=== PATIENT | female | born 1935 | race Caucasian/White ===

== ENCOUNTER 2018-01-11 08:20 | Outpatient (CLI) | payer MEDICARE ==
[2018-01-11] MEDS ORDERED: Iopamidol 370 76% 100 ML VIAL ONE (09:00)
--- NOTE | 2018-01-11 09:30 | CT ---
CT ABDOMEN AND PELVIS WITH AND WITHOUT IV COTNRAST: HISTORY: Renal mass. FINDINGS: No comparison. Each renal collecting system, ureter, and the urinary bladder are decompressed withou t stone evident. No filling defects are apparent within the urinary system on the delayed images. Projecting laterally from the posterior aspect of the left kidney is a well-circumscribed fluid densi ty mass that is partially exophytic. It measures 1.1 cm diameter. No other solid or cystic renal ma sses are apparent. The liver, spleen, adrenal glands, and pancreas are within normal limits. There is calcification in the arterial structures. No enlarged lymph nodes or free fluid are apparent. Degenerative changes l umbar spine and hips. Diverticula arise from the colon without adjacent inflammation. IMPRESSION: 1. Small exophytic left renal cyst. No solid masses are apparent. 2. Diverticulosis. 3. Atherosclerosis. POS: MAGDA
== END 2018-01-11 08:21 | disposition home or self-care (01) ==
LOC: SCSCT 08:20
PROVIDERS: ATTEND Urology
DX: N28.1 Cyst of kidney, acquired (principal); R39.198 Other difficulties with micturition; R35.0 Frequency of micturition; K57.90 Diverticulosis of intestine, part unspecified, without perforation or abscess without bleeding; I70.90 Unspecified atherosclerosis
CPT/HCPCS: 74178; 82565

== ENCOUNTER 2020-06-02 09:50 | Outpatient (CLI) | payer MEDICARE ==
--- NOTE | 2020-06-02 11:13 | ULT ---
RIGHT UPPER QUADRANT ULTRASOUND: Date: 06/02/2020 HISTORY: Right upper quadrant pain. FINDINGS: The liver, gallbladder, right kidney, and pancreas appear normal. The common duct measures 7.0 mm in diameter. No free fluid is seen in Morison's pouch. IMPRESSION: Normal exam. POS: AH
== END 2020-06-02 09:51 | disposition home or self-care (01) ==
LOC: SCSULT 09:50
PROVIDERS: ATTEND Internal Medicine Gastroenterology
DX: K21.9 Gastro-esophageal reflux disease without esophagitis (principal); R10.13 Epigastric pain
CPT/HCPCS: 76705